=== PATIENT | male | born 1990 | race Caucasian/White ===

== ENCOUNTER → 2019-06-28 16:26 | Outpatient (CLI) | payer SELFPAY | PROVIDERS: Visit Provider Physician Assistant | DX: J02.9 Acute pharyngitis, unspecified (principal) | CPT/HCPCS: 87070 ==

== ENCOUNTER 2021-08-21 23:15 | Emergency (ER) | payer OTHER, MEDICAID, SELFPAY ==
[2021-08-21 23:36] VITALS: BP 165/116; PULSE 140; RESP 22; TEMP 36.6; O2SAT 96; BMI 25.0
--- NOTE | 2021-08-22 00:10 | PC.NURSE ---
Pt EKG obtained and given to ER provider. Pt verbally abusive towards staff, frequently raising his voice and swearing. Pt informed this behavioral will not be tolerated in this department, especially not in the hallway with other pts nearby. Pt tore of his wristband multiple times. Pt repeatedly expressing that he will not trust a female. Fuck women, I only trust you man. mercerizing range controller and provider notified of pt behavioral. Pt pulled out his IV after repeatedly being told to not pull it out. Labs had been obtained prior to him pulling out his IV. mercerizing range controller also notified of this. Pt continuing to be verbally belligerent in hallway. No room available at this time for pt.
--- NOTE | 2021-08-22 00:16 | PC.NURSE ---
Pt uncooperative when asked how much he drinks. Pt replied enough, lots of vodka. Pt unwilling to be assessed by this RN, not answering questions from this RN appropriately. Pt appears heavily intoxicated.
[2021-08-22 00:36] LABS: Add Manual Diff / Slide Review NO; Basophils Absolute Auto 0 /uL (0-100); Basophils Percent Auto 0.5 % (0-2); Eosinophils Absolute Auto 0 /uL (0-450); Eosinophils Percent Auto 0.1 % (2-4); Hematocrit 46.9 % (41-53); Hemoglobin 16.7 g/dL (13.5-17.5); Lymphocytes Absolute Auto 4000 /uL (1100-4500); Lymphocytes Percent Auto 38.6 % (25-40); Mean Corpuscular HGB Conc 35.5 % (30-36); Mean Corpuscular Hemoglobin 32.6 PG (26-34); Mean Corpuscular Volume 91.8 fL (80-100); Monocytes Absolute Auto 800 /uL (0-900); Monocytes Percent Auto 7.6 % (3-14); Neutrophils Absolute Auto 5400 /uL (1500-7000); Neutrophils Percent Auto 53.2 % (50-75); Platelet Count 221 X10^3/uL (150-400); Red Blood Cell Count 5.11 X10^6/uL (4.5-5.9); Red Cell Distribution Width 12.8 % (11.6-14.8); White Blood Cell Count 10.2 X10^3/uL (4.5-11.0)
[2021-08-22 00:48] LABS: Alanine Aminotransferase 30 IU/L (<50); Albumin 5.2 g/dL (3.5-5.0); Albumin Globulin Ratio 1.5 (1.0-2.8); Alkaline Phosphatase 80 U/L (38-126); Aspartate Aminotransferase 35 IU/L (17-59); BUN Creatinine Ratio 12.5 (6-22); Bilirubin Total 0.4 mg/dL (0.2-1.3); Blood Urea Nitrogen 11 mg/dL (9-20); Calcium 8.7 mg/dL (8.4-10.2); Carbon Dioxide 23 mmol/L (22-32); Chloride 108 mmol/L (98-107); Estimated Glomerular Filt Rate > 60 mL/min (>60); Globulin 3.5 g/dL (1.7-4.1); Glucose 112 mg/dL (70-100); HEMOLYSIS < 15 (0-50); Potassium 4.2 mmol/L (3.4-5.1); Sodium 144 mmol/L (137-145); Total Protein 8.7 g/dL (6.3-8.2)
[2021-08-22 00:56] LABS: Ethanol (ETOH) 341 mg/dL
[2021-08-22 00:58] VITALS: BP 134/90; PULSE 111; O2SAT 95
[2021-08-22 01:00] VITALS: PULSE 109; RESP 22; O2SAT 95
[2021-08-22] MEDS: SODIUM CHLORIDE 0.9% 1,000 ML 1000 ML IV (01:13)
[2021-08-22 01:30] VITALS: PULSE 109; O2SAT 93
[2021-08-22 02:00] VITALS: PULSE 113; RESP 24; O2SAT 96
[2021-08-22 02:03] LABS: COVID19 -Nasal RAPID Negative (Negative)
[2021-08-22 02:05] VITALS: PULSE 104
[2021-08-22 02:26] LABS: Ur Creatinine 20 (Normal)
[2021-08-22 02:27] LABS: UR Morphine/Opiate cutoff 300 Negative (Negative); Ur Specific Gravity 1.025 (Normal); Urine Amphetamines Negative (Negative); Urine Barbiturates Negative (Negative); Urine Benzodiazepines Negative (Negative); Urine Cocaine Negative (Negative); Urine MDMA Negative (Negative); Urine Methadone Negative (Negative); Urine Methamphetamines Negative (Negative); Urine Oxycodone Negative (Negative); Urine Phencyclidine Negative (Negative); Urine Tetrahydrocannabinol Negative (Negative); Urine Tricyclic Antidepressant Negative (Negative); Urine pH 5 (Normal)
--- NOTE | 2021-08-22 02:52 | ED.ALCOHOL ---
HPI - Alcohol General Chief Complaint: Toxicology Problem Stated Complaint: detox Time Seen by Provider: 08/21/21 23:58 Source: patient Mode of arrival: Ambulatory Limitations: no limitations History of Present Illness HPI narrative: Patient left without being seen by myself. Patient was visualized in the roa. He is ambulatory but was not evaluated by myself. Related Data Home Medications Medication Instructions Recorded Confirmed melatonin 10 mg capsule 10 mg PO BEDTIME PRN 10/01/17 06/28/19 Resmed Airsense 10 CPAP #1 ea 09/08/18 06/28/19 buprenorphine HCl 2 mg sublingual 2 mg SL DAILY 09/08/18 06/28/19 tablet mirtazapine 45 mg tablet 45 mg PO DAILY 09/08/18 08/21/21 Allergies Allergy/AdvReac Type Severity Reaction Status Date / Time No Known Drug Allergies Allergy Verified 08/21/21 23:40 Patient History Medical History (Updated 08/22/21 @ 02:52 by Yelena Chavira DO) Excessive daytime sleepiness Knee pain Obstructive sleep apnea syndrome Perennial allergic rhinitis with seasonal variation Pharyngitis Primary insomnia Social History number of children: 1 Smoking Status: Never smoker Smoking Status: Never smoker tobacco type: smokeless tobacco alcohol intake frequency: 3 or more drinks per day Substance Use Type: does not use Exam Initial Vital Signs Initial Vital Signs: Vital Signs Temperature 98 F 08/21/21 23:36 Pulse Rate 140 H 08/21/21 23:36 Respiratory Rate 22 08/21/21 23:36 Blood Pressure 165/116 H 08/21/21 23:36 Pulse Oximetry 96 08/21/21 23:36 Course Orders Ordered: Discontinued Medications Sodium Chloride (Normal Saline 0.9%) 1,000 mls @ 1,000 mls/hr IV BOLUS ONE Stop: 08/22/21 00:53 Last Infusion: 08/22/21 02:28 Dose: 0 mls/hr Documented by: Admin: 08/22/21 01:13 Dose: 1,000 mls/hr Documented by: MARCUS Ondansetron HCl (Ondansetron 4 Mg/2 Ml Inj) 4 mg IV NOW ONE Stop: 08/21/21 23:56 Last Admin: 08/22/21 01:17 Dose: Not Given Documented by: MARCUS Vital Signs Vital signs: Vital Signs - 8 hr 08/21/21 23:36 08/22/21 00:58 08/22/21 01:00 Temperature 98 F Pulse Rate 140 H 111 H 109 H Respiratory Rate 22 22 Blood Pressure 165/116 H 134/90 Pulse Oximetry 96 95 95 08/22/21 01:30 08/22/21 02:00 08/22/21 02:05 Temperature Pulse Rate 109 H 113 H 104 H Respiratory Rate 24 Blood Pressure Pulse Oximetry 93 96 MDM - Alcohol Lab Data Result diagrams: 08/21/21 23:59 08/21/21 23:59 Labs: Lab Results 08/21/21 08/21/21 08/22/21 Range/Units 23:59 23:59 01:30 WBC 10.2 (4.5-11.0) X10^3/uL RBC 5.11 (4.5-5.9) X10^6/uL Hgb 16.7 (13.5-17.5) g/dL Hct 46.9 (41-53) % MCV 91.8 (80-100) fL MCH 32.6 (26-34) PG MCHC 35.5 (30-36) % RDW 12.8 (11.6-14.8) % Plt Count 221 (150-400) X10^3/uL Neut % (Auto) 53.2 (50-75) % Lymph % (Auto) 38.6 (25-40) % Isabella % (Auto) 7.6 (3-14) % Eos % (Auto) 0.1 L (2-4) % Baso % (Auto) 0.5 (0-2) % Neut # (Auto) 5400 (8301-8009) /uL Lymph # (Auto) 4000 (2886-1926) /uL Isabella # (Auto) 800 (0-900) /uL Eos # (Auto) 0 (0-450) /uL Baso # (Auto) 0 (0-100) /uL Sodium 144 (137-145) mmol/L Potassium 4.2 (3.4-5.1) mmol/L Chloride 108 H (98-107) mmol/L Carbon Dioxide 23 (22-32) mmol/L BUN 11 (9-20) mg/dL Creatinine 0.88 (0.66-1.25) mg/dL Estimated GFR > 60 (>60) mL/min BUN/Creatinine Ratio 12.5 (6-22) Glucose 112 H (70-100) mg/dL Calcium 8.7 (8.4-10.2) mg/dL Total Bilirubin 0.4 (0.2-1.3) mg/dL AST 35 (17-59) IU/L ALT 30 (<50) IU/L Alkaline Phosphatase 80 (38-126) U/L Total Protein 8.7 H (6.3-8.2) g/dL Albumin 5.2 H (3.5-5.0) g/dL Globulin 3.5 (1.7-4.1) g/dL Albumin/Globulin Ratio 1.5 (1.0-2.8) U Opiates 300ng/mL cut (Negative) Ur Oxycodone Screen (Negative) Urine Methadone Screen (Negative) Ur Barbiturates Screen (Negative) U Tricyclic Antidepress (Negative) Ur Phencyclidine Scrn (Negative) Ur Amphetamines Screen (Negative) U Methamphetamines Scrn (Negative) Ur MDMA Scrn (Ecstasy) (Negative) U Benzodiazepines Scrn (Negative) Urine Cocaine Screen (Negative) U Marijuana (THC) Screen (Negative) Ethyl Alcohol 341 H ( - 10) mg/dL SARS-CoV-2 (PCR) Negative (Negative) 08/22/21 Range/Units 01:55 WBC (4.5-11.0) X10^3/uL RBC (4.5-5.9) X10^6/uL Hgb (13.5-17.5) g/dL Hct (41-53) % MCV (80-100) fL MCH (26-34) PG MCHC (30-36) % RDW (11.6-14.8) % Plt Count (150-400) X10^3/uL Neut % (Auto) (50-75) % Lymph % (Auto) (25-40) % Isabella % (Auto) (3-14) % Eos % (Auto) (2-4) % Baso % (Auto) (0-2) % Neut # (Auto) (7727-5498) /uL Lymph # (Auto) (3475-9985) /uL Isabella # (Auto) (0-900) /uL Eos # (Auto) (0-450) /uL Baso # (Auto) (0-100) /uL Sodium (137-145) mmol/L Potassium (3.4-5.1) mmol/L Chloride (98-107) mmol/L Carbon Dioxide (22-32) mmol/L BUN (9-20) mg/dL Creatinine (0.66-1.25) mg/dL Estimated GFR (>60) mL/min BUN/Creatinine Ratio (6-22) Glucose (70-100) mg/dL Calcium (8.4-10.2) mg/dL Total Bilirubin (0.2-1.3) mg/dL AST (17-59) IU/L ALT (<50) IU/L Alkaline Phosphatase (38-126) U/L Total Protein (6.3-8.2) g/dL Albumin (3.5-5.0) g/dL Globulin (1.7-4.1) g/dL Albumin/Globulin Ratio (1.0-2.8) U Opiates 300ng/mL cut Negative (Negative) Ur Oxycodone Screen Negative (Negative) Urine Methadone Screen Negative (Negative) Ur Barbiturates Screen Negative (Negative) U Tricyclic Antidepress Negative (Negative) Ur Phencyclidine Scrn Negative (Negative) Ur Amphetamines Screen Negative (Negative) U Methamphetamines Scrn Negative (Negative) Ur MDMA Scrn (Ecstasy) Negative (Negative) U Benzodiazepines Scrn Negative (Negative) Urine Cocaine Screen Negative (Negative) U Marijuana (THC) Screen Negative (Negative) Ethyl Alcohol ( - 10) mg/dL SARS-CoV-2 (PCR) (Negative) ECG Data Attestation: I personally reviewed and interpreted this ECG as follows: Prior ECG tracings: not available for review Interpretation: Sinus tachycardia, rate of 133 VT 136 QRS of 94 and QTC 455. No acute ST elevation depression noted. No priors available for review. MDM Narrative Medical decision making narrative: 31-year-old male left without being seen but labs and EKG reviewed by myself who presented with request for detox. Patient is in the company of his mother who drove him this evening and left with mother. Patient visualized with steady gait in department. Discharge Plan Departure Patient Disposition: Left Against Medical Advice Clinical Impression: Alcohol intoxication, Patient left without being seen Prescriptions: No Action melatonin 10 mg capsule 10 mg PO BEDTIME PRN0RF buprenorphine HCl 2 mg tablet, sublingual 2 mg SL DAILY 0RF mirtazapine 45 mg tablet 45 mg PO DAILY 0RF (DME) Resmed Airsense 10 CPAP Qty: 1 0RF Dose Instruction: As directed Label Comments: Pressure: 5-10 cmH2O DME: [facility] Instructions: As directed Stand Alone Forms: Against Medical Advice, Naloxone Standing Order [facility]
== END 2021-08-22 02:05 | disposition left against medical advice (07) ==
PROVIDERS: Emergency Provider Emergency Medicine
DX: F10.129 Alcohol abuse with intoxication, unspecified (principal); Z20.822 Contact with and (suspected) exposure to COVID-19
CPT/HCPCS: 36415; 80053; 80305; 80320; 85025; 87635; 93005; 99284; C9803; J2405